=== PATIENT | male | born 1955 | race American Indian/Alaskan Native ===

== ENCOUNTER 2020-08-07 15:16 | Emergency (ER) | payer OTHER ==
[2020-08-07] MEDS ORDERED: MORPHINE 4 MG/1 ML INJ IM ONE (15:54)
--- NOTE | 2020-08-07 15:56 | Emergency Department Report ---
HPI - General Chief Complaint: Extremity Injury, Lower Time Seen by Provider: 08/07/20 15:48 - HPI HPI: This is a 65-year-old -[place] male who presents to the emergency department via EMS with a complaint of left knee pain. The patient was stepping up onto something when his knee hyperextended and gave out. The patient then fell to the ground. He denies hitting his head or any loss of consciousness. He only complains of pain in the left knee. No past medical history. He did not take anything or receive anything for his symptoms prior to presentation. ED Past Medical Hx - Past Medical History Previous Medical History?: No - Surgical History Past Surgical History?: Yes Additional Surgical History: back surgery - Social History Smoking Status: Current Every Day Smoker Substance Use Type: Alcohol - Medications Home Medications: Home Medications Medication Instructions Recorded Confirmed Last Taken Type HYDROcodone/APAP 5-325 [[place] 1 each PO Q6HR PRN #12 tablet 08/07/20 Unknown Rx 5/325] ED Review of Systems ROS: Stated complaint: LEFT KNEE PAIN Other details as noted in HPI Comment: All other systems reviewed and negative Constitutional: denies: chills, fever Respiratory: denies: shortness of breath Cardiovascular: denies: chest pain Gastrointestinal: denies: abdominal pain Musculoskeletal: joint swelling, arthralgia. denies: back pain Skin: denies: rash, lesions Neurological: denies: numbness, paresthesias Physical Exam - Physical Exam Physical Exam: GENERAL: The patient is well-developed well-nourished. HENT: Normocephalic. Atraumatic. Patient has moist mucous membranes. EYES: Extraocular motions are intact. NECK: Supple. Trachea is midline. CHEST/LUNGS: Clear to auscultation. There is no respiratory distress noted. HEART/CARDIOVASCULAR: Regular. There is no tachycardia. There is no murmur. ABDOMEN: Abdomen is soft, nontender. Patient has normal bowel sounds. SKIN: Skin is warm and dry. There is nonpitting swelling of the left circumferential knee. NEURO: The patient is awake, alert, and oriented. The patient is cooperative. The patient has no focal neurologic deficits. Normal speech. MUSCULOSKELETAL: Tenderness to palpation to the anterior and medial left knee. No laxity with valgus or varus stress. Negative anterior and posterior drawer test. Dorsalis pedis pulse +2/4 and capillary refill less than 2 seconds to the affected left leg. ED Medical Decision Making - Radiology Data Radiology results: report reviewed LEFT KNEE 4 VIEW(S) INDICATION / CLINICAL INFORMATION: Left knee pain, fall, knee hyperextended COMPARISON: None available. FINDINGS: BONES / JOINT(S): 3.6 cm partially sclerotic focus in the distal tibial metaphysis could represent a bone infarct or a low-grade chondral lesion such as an enchondroma. No aggressive appearing features. No acute fracture or dislocation. Mild degenerative changes. SOFT TISSUES: Abnormal appearance of the distal quadricep tendons possibly suggesting partial or high-grade tear. Recommend clinical correlation and consider further evaluation, as warranted. ADDITIONAL FINDINGS: None. - Medical Decision Making This patient presents with left knee pain and swelling after what sounds like a hyperextension injury. He is neurovascularly intact. X-ray does not show any fracture or dislocation but shows some concerns for possible injury to the quadriceps tendon. The patient denies any other areas of pain or injury. He has been placed in a knee immobilizer and will be nonweightbearing on crutches. He was given pain control and has been given outpatient referrals for orthopedist. Critical Care Time: No Critical care attestation.: If time is entered above; I have spent that time in minutes in the direct care of this critically ill patient, excluding procedure time. ED Disposition Clinical Impression: Knee pain Qualifiers: Chronicity: acute Laterality: left Qualified Code(s): M25.562 - Pain in left knee Hypertension Qualifiers: Hypertension type: essential hypertension Qualified Code(s): I10 - Essential (primary) hypertension Knee hyperextension injury Qualifiers: Encounter type: initial encounter Laterality: left Qualified Code(s): S89.82XA - Other specified injuries of left lower leg, initial encounter Disposition: DC-01 TO HOME OR SELFCARE Is pt being admited?: No Condition: Stable Instructions: Acute Knee Pain, Adult, [id number]-ax-[id number], How to Use a Knee Brace, Hypertension, Adult, Hypertension (ED) Additional Instructions: Please follow-up with a primary care physician in the next few days. Please follow-up with an orthopedist regarding your knee pain. Use the knee immobilizer and crutches to be nonweightbearing to that left leg until follow-up with the orthopedist. I have given you a referral for 2 different local orthopedic groups, Dr. Sandoval and [facility]. You have been prescribed a medication that is sedating and therefore should not be taken prior to driving, working, and responsible for children and in no way should be mixed with alcohol of any quantity. Return to the emergency department with any worsening of your symptoms, new or concerning symptoms not addressed during this current emergency department visit, or with any acute distress. Prescriptions: HYDROcodone/APAP 5-325 [[place] 5/325] 1 each PO Q6HR PRN #12 tablet PRN Reason: Pain Referrals: PRIMARY CARE, [Primary Care Provider] - 2-3 Days CAMILLA SANDOVAL MD [Staff Physician] - 2-3 Days [facility] [Provider Group] - 2-3 Days Time of Disposition: 16:49
--- NOTE | 2020-08-07 16:36 | XRay Report ---
LEFT KNEE 4 VIEW(S) INDICATION / CLINICAL INFORMATION: Left knee pain, fall, knee hyperextended COMPARISON: None available. FINDINGS: BONES / JOINT(S): 3.6 cm partially sclerotic focus in the distal tibial metaphysis could represent a bone infarct or a low-grade chondral lesion such as an enchondroma. No aggressive appearing features. No acute fracture or dislocation. Mild degenerative changes. SOFT TISSUES: Abnormal appearance of the distal quadricep tendons possibly suggesting partial or high -grade tear. Recommend clinical correlation and consider further evaluation, as warranted. ADDITIONAL FINDINGS: None. Signer Name: Rene Kelly MD Signed: 08/07/2020 4:32 PM Workstation Name: [id number]
[2020-08-07] MEDS ORDERED: KETOROLAC 30 MG/1 ML INJ IM ONE (17:33)
[2020-08-07] MEDS ORDERED: KETOROLAC 30 MG/1 ML INJ ONE (17:34)
[2020-08-07 17:46] VITALS: BP 150/103
== END 2020-08-07 17:47 | disposition home or self-care (01) ==
LOC: EDBD → ED 15:16
DX: S89.82XA Other specified injuries of left lower leg, initial encounter (principal); I10 Essential (primary) hypertension; F17.200 Nicotine dependence, unspecified, uncomplicated; Z98.890 Other specified postprocedural states; Z79.899 Other long term (current) drug therapy; X58.XXXA Exposure to other specified factors, initial encounter; Y93.89 Activity, other specified; Y92.89 Other specified places as the place of occurrence of the external cause; Y99.8 Other external cause status
CPT/HCPCS: 29505; 73562; 96372; 99284; J1885; J2270